=== PATIENT | male | born 1980 | race Hispanic/Latino ===

== ENCOUNTER 2016-11-02 08:41 | Emergency (ER) | payer SELFPAY ==
[2016-11-02 08:56] VITALS: BP 132/81
--- NOTE | 2016-11-02 09:18 | XRay Report ---
CHEST 2 VIEWS INDICATION: Cough, shortness of breath. COMPARISON: None similar. FINDINGS: PA and lateral chest radiographs demonstrate normal cardiomediastinal silhouette. Well-expanded lungs without pleural effusions or CHF. However, subtle 3-4 cm airspace opacity suspected in the right mid lung zone on the frontal view. Intact bones. CONCLUSION: Subtle right midlung pneumonia suspected, as described. Please also correlate clinically and further with chest CT, if warranted. Thank you for the opportunity to participate in this patient's care.
[2016-11-02 10:42] LABS: Basophils % (Auto) 0.8 % (0.0-1.8); Eosinophils % (Auto) 3.1 % (0.0-4.3); Hematocrit 45.9 % (35.5-45.6); Hemoglobin 15.9 gm/dl (11.8-15.2); Mean Corpuscular HGB Conc 35 % (32-34); Mean Corpuscular Hemoglobin 31 pg (28-32); Mean Corpuscular Volume 91 fl (84-94); Platelet Count 116 K/mm3 (140-440); Red Blood Count 5.07 M/mm3 (3.65-5.03); Red Cell Distribution Width 12.5 % (13.2-15.2); White Blood Count 7.3 K/mm3 (4.5-11.0)
[2016-11-02 10:43] LABS: Anion Gap 18 mmol/L; Blood Urea Nitrogen 14 mg/dL (9-20); Calcium 9.3 mg/dL (8.4-10.2); Carbon Dioxide 22 mmol/L (22-30); Chloride 102.8 mmol/L (98-107); Glucose 83 mg/dL (75-100); Potassium 3.8 mmol/L (3.6-5.0); Sodium 139 mmol/L (137-145)
[2016-11-02] MEDS ORDERED: DUONEB 0.5 MG-3 MG/3 ML SOLN IH ONE (11:01)
--- NOTE | 2016-11-02 11:41 | Emergency Department Report ---
<TOBY GHOSH - Last Filed: 11/02/16 15:52> - General Chief Complaint: Upper Respiratory Infection Stated Complaint: TIM/COUGHING /EMESIS Time Seen by Provider: 11/02/16 10:06 Source: patient Mode of arrival: Ambulatory Limitations: No Limitations - History of Present Illness Initial Comments: This is a 36-year-old male well-nourished with nontoxic or ill in appearance but presents with productive cough and wheezing x1 day. Patient denies any recent travels. Denies shortness of breath, chest pain, nausea vomiting, jaw pain, abdominal pain, headache, blurry vision, stiff neck, numbness or tingling. Patient status currently on clindamycin due to dental workup. Patient also c/o chest tightness after cough. Describes it as sharp but subsides when cough stops. Denies CP or radiating CP tightness. Patient denies any fever or chills. Patient stated allergies to latex, penicillin, Phenergan. Patient denies past medical history except asthma and kidney stones. MD Complaint: cough (productive) -: Gradual, days(s) (1) Severity: mild Severity scale (0 -10): 7 Quality: sharp Consistency: intermittent Improves With: nothing Associated Symptoms: cough. denies: fever, chills, myalgias, diaphoresis, headache, rhinorrhea, nasal congestion, sore throat, stiff neck, chest pain, shortness of breath, abdominal pain, nausea, vomiting, diarrhea, dysuria, rash, confusion, right sweats, weight loss, epistaxis, hoarseness, ear pain Treatments Prior to Arrival: none - Related Data Previous Rx's Medication Instructions Recorded Last Taken Type Albuterol Sulfate [Ventolin HFA] 2 puff IH Q4H PRN #1 hfa.aer.ad 11/02/16 Unknown Rx Levofloxacin [Levaquin TAB] 750 mg PO QDAY #5 tablet 11/02/16 Unknown Rx predniSONE [Deltasone] 20 mg PO BID #10 tab 11/02/16 Unknown Rx Allergies Allergy/AdvReac Type Severity Reaction Status Date / Time latex AdvReac Rash Verified 11/02/16 08:58 Penicillins AdvReac ABD PAIN Verified 11/02/16 08:58 promethazine HCl AdvReac "SKIN Verified 11/02/16 08:58 [From Phenergan] CRAWL" ED Review of Systems ROS: Stated complaint: TIM/COUGHING /EMESIS Other details as noted in HPI Constitutional: denies: chills, fever Eyes: denies: eye pain, eye discharge, vision change ENT: denies: ear pain, throat pain Respiratory: denies: cough, shortness of breath, wheezing Cardiovascular: denies: chest pain, palpitations Endocrine: no symptoms reported Gastrointestinal: denies: abdominal pain, nausea, diarrhea Genitourinary: denies: urgency, dysuria Musculoskeletal: denies: back pain, joint swelling, arthralgia Skin: denies: rash, lesions Neurological: denies: headache, weakness, paresthesias Psychiatric: denies: anxiety, depression Hematological/Lymphatic: denies: easy bleeding, easy bruising ED Past Medical Hx - Past Medical History Hx Kidney Stones: Yes Hx Asthma: Yes - Surgical History Additional Surgical History: LITHOTRIPSY. LEFT KIDNEY STENT LEFT NEPHROSTOMY TUBE - Social History Smoking Status: Current Every Day Smoker Substance Use Type: Marijuana - Medications Home Medications: Home Medications Medication Instructions Recorded Confirmed Last Taken Type Albuterol Sulfate [Ventolin HFA] 2 puff IH Q4H PRN #1 hfa.aer.ad 11/02/16 Unknown Rx Levofloxacin [Levaquin TAB] 750 mg PO QDAY #5 tablet 11/02/16 Unknown Rx predniSONE [Deltasone] 20 mg PO BID #10 tab 11/02/16 Unknown Rx ED Physical Exam - General Limitations: No Limitations General appearance: alert, in no apparent distress - Head Head exam: Present: atraumatic, normocephalic, normal inspection - Eye Eye exam: Present: normal appearance, PERRL, EOMI. Absent: scleral icterus, conjunctival injection, nystagmus, periorbital swelling, periorbital tenderness Pupils: Present: normal accommodation - ENT ENT exam: Present: normal exam, normal orophraynx, mucous membranes moist, TM's normal bilaterally, normal external ear exam - Neck Neck exam: Present: normal inspection, full ROM. Absent: tenderness, meningismus, lymphadenopathy, thyromegaly - Respiratory Respiratory exam: Present: normal lung sounds bilaterally, wheezes (bilateral upper/middle lobes). Absent: respiratory distress, rales, rhonchi, stridor, chest wall tenderness, accessory muscle use, decreased breath sounds, prolonged expiratory - Cardiovascular Cardiovascular Exam: Present: regular rate, normal rhythm, normal heart sounds. Absent: bradycardia, tachycardia, irregular rhythm, systolic murmur, diastolic murmur, rubs, gallop - GI/Abdominal GI/Abdominal exam: Present: soft, normal bowel sounds. Absent: distended, tenderness, guarding, rebound, rigid, diminished bowel sounds - Rectal Rectal exam: Present: deferred - Extremities Exam Extremities exam: Present: normal inspection, full ROM, normal capillary refill. Absent: tenderness, pedal edema, joint swelling, calf tenderness - Back Exam Back exam: Present: normal inspection, full ROM. Absent: tenderness, CVA tenderness (R), CVA tenderness (L), muscle spasm, paraspinal tenderness, vertebral tenderness, rash noted - Neurological Exam Neurological exam: Present: alert, oriented X3, CN II-XII intact, normal gait - Psychiatric Psychiatric exam: Present: normal affect, normal mood - Skin Skin exam: Present: warm, dry, intact, normal color. Absent: rash ED Course Vital Signs 11/02/16 11/02/16 08:50 11:48 Temperature 98.2 F Pulse Rate 93 H 86 Respiratory 18 Rate Blood Pressure 132/81 O2 Sat by Pulse 96 96 Oximetry - Reevaluation(s) Reevaluation #1: 11/02/16 11:42 Patient is resting comfortably with no signs of distress. Reevaluation #2: 11/02/16 11:42 Pre DuoNeb treatment Peak-flow 150 Post DuoNeb treatment peak flow: 250 As per registered therapist patient had difficulty due to coughing. Wheezing has significantly decreased and patient that he feels much better after DuoNeb treatment. - Consultations Consultation #1: 11/02/16 11:42 Dr. Springer has been consulted about patient and agrees to plan of care and d/c instructions. ED Medical Decision Making - Lab Data Result diagrams: 11/02/16 10:15 11/02/16 10:15 - Medical Decision Making Ed course: This is a 36-year-old male that presents with right midlung pneumonia 1- x-ray of chest has been obtained in the ED. Dictated by Dr. Drew. Impression; Subtle right midlung pneumonia suspected. 2- CBC and BMP has been obtained with normal findings. Dr. Springer was consulted by the patient agrees to plan of care and ED as well as discharge instructions. 3- patient was instructed to discontinue clindamycin and take levofloxacin for 5 days. 4- patient was also instructed to follow up with her primary care doctor in 24 hours or if symptoms worsen such as difficulty breathing, shortness of breath, chest pain, fever, chills, nausea vomiting, headache, stiff neck, report back to emergency room as soon as possible. 5- at time time of discharge, the patient does not seem toxic or ill in appearance. No acute signs of distress noted. Patient agrees to discharge treatment plan of care. No further questions noted by the patient. 6- patient also received albuterol and prednisone at the time of discharge. 7- patient received Solu-Medrol and DuoNeb in the ED. Peak flow pre-and post DuoNeb has been obtained. Wheezing has been significantly decreased and patient state he feels much better with breathing. 8- CURB-65 is 0 points: Low risk group: 0.6% 30-day mortality. Consider outpatient treatment. Critical care attestation.: If time is entered above; I have spent that time in minutes in the direct care of this critically ill patient, excluding procedure time. ED Disposition Disposition: DC-01 TO HOME OR SELFCARE Is pt being admited?: No Does the pt Need Aspirin: No Condition: Stable Instructions: Prednisone (By mouth), Levofloxacin (By mouth), Community- acquired Pneumonia (ED), Bacterial Pneumonia (ED) Additional Instructions: Stop taking clindamycin and start taking levofloxacin as prescribed. Follow up with your primary care doctor in 24 hours or if symptoms worsen such as difficulty breathing, shortness of breath, chest pain, fever, chills, nausea vomiting, headache, stiff neck, report back to emergency room as soon as possible. Take full course of antibiotics and prednisone as prescribed. Take albuterol as prescribed as needed for difficulty breathing or wheezing. Prescriptions: Albuterol Sulfate [Ventolin HFA] 2 puff IH Q4H PRN #1 hfa.aer.ad PRN Reason: Shortness Of Breath Levofloxacin [Levaquin TAB] 750 mg PO QDAY #5 tablet predniSONE [Deltasone] 20 mg PO BID #10 tab Referrals: [facility] [Outside] - 3-5 Days [facility] [Outside] - 3-5 Days BABATUNDE HAIR JR, MD [Staff Physician] - 24 Hours PRIMARY CARE, [Primary Care Provider] - 24 Hours Forms: Work/School Release Form(ED) <VILMA SPRINGER - Last Filed: 11/04/16 18:44> ED Medical Decision Making - Lab Data Result diagrams: 11/02/16 10:15 11/02/16 10:15
== END 2016-11-02 12:09 | disposition home or self-care (01) ==
LOC: ED 08:41
DX: R05 Cough (principal); R06.2 Wheezing; J45.909 Unspecified asthma, uncomplicated; F17.200 Nicotine dependence, unspecified, uncomplicated; F12.90 Cannabis use, unspecified, uncomplicated; Z88.0 Allergy status to penicillin; Z91.040 Latex allergy status; Z88.8 Allergy status to other drugs, medicaments and biological substances
CPT/HCPCS: 36415; 71020; 80048; 85025; 94640; 96372; 99284; J2920

== ENCOUNTER 2019-11-20 12:41 | Emergency (ER) | payer SELFPAY ==
[2019-11-20 12:47] VITALS: BP 124/73
--- NOTE | 2019-11-20 13:00 | Event Note ---
ED Screening Note ED Screening Note: FLANK PAIN This initial assessment/diagnostic orders/clinical plan/treatment(s) is/are subject to change based on patients health status, clinical progression and re- assessment by fellow clinical providers in the ED. Further treatment and workup at subsequent clinical providers discretion. Patient/guardian urged not to elope from the ED as their condition may be serious if not clinically assessed and managed. Initial orders include: KATIE TONY
[2019-11-20 13:14] LABS: Mean Corpuscular HGB Conc 36 % (32-34); Mean Corpuscular Volume 92 fl (84-94); Platelet Count 151 K/mm3 (140-440); Red Cell Distribution Width 12.5 % (13.2-15.2)
[2019-11-20 13:17] LABS: Hemoglobin 15.8 gm/dl (11.8-15.2)
[2019-11-20 13:55] LABS: BUN/Creatinine Ratio 14; Blood Urea Nitrogen 14 mg/dL (9-20); Calcium 9.5 mg/dL (8.4-10.2); Hemolysis Index 11
[2019-11-20 14:32] LABS: Bilirubin,Urine NEG (Negative); Blood,Urine SM (Negative); Color,Urine Yellow (Yellow); Mucus,Urine FEW /HPF; Protein,Urine <15 mg/dL mg/dL (Negative); Urobilinogen,Urine < 2.0 mg/dL (<2.0)
[2019-11-20] MEDS ORDERED: SODIUM CHLORIDE 0.9% 1000 ML 1,000 ML IV ONE (14:34)
[2019-11-20] MEDS ORDERED: KETOROLAC 30 MG/1 ML INJ IV ONE (15:11)
--- NOTE | 2019-11-20 15:50 | Cat Scan Report ---
CT ABDOMEN AND PELVIS WITHOUT CONTRAST HISTORY: abd pain RO KIDNEY STONE COMPARISON: None. TECHNIQUE: Axial CT images were obtained through the abdomen and pelvis without IV contrast. Sagittal and coronal reformatted images. All CT scans at this location are performed using CT dose reduction for ALARA by means of automated exposure control. FINDINGS: CT ABDOMEN: Lung Bases: Clear. Liver: No significant abnormality. Biliary: No significant abnormality. Spleen: No significant abnormality. Unenlarged. Pancreas: No significant abnormality. Adrenals: No significant abnormality. Kidneys: The kidneys are normal size, contour and position. There are 3 or 4 calyceal stones in both kidneys measuring up to 4 mm. A 5.0 x 5.0 x 6.8 mm left ureteral stone is identified at the level of L4. There is moderate upstream hydronephrosis. Lymphatics: No lymphadenopathy. Vasculature: No significant abnormality. Bowel/Peritoneum: No significant abnormality. No free air. No free fluid. Normal appendix. CT PELVIS: : No significant abnormality. Osseous Structures: No significant abnormality. Additional Findings: None IMPRESSION: Small bilateral renal stones. Obstructing mid left ureteral stone as described. Signer Name: Nish Blake Jr, MD Signed: 11/20/2019 3:46 PM Workstation Name: [id number]
--- NOTE | 2019-11-20 15:58 | Emergency Department Report ---
ED Abdominal Pain HPI - General Chief Complaint: Abdominal Pain Stated Complaint: LEFT FLANK PAIN Time Seen by Provider: 11/20/19 12:59 Source: patient Mode of arrival: Ambulatory Limitations: No Limitations - History of Present Illness Initial Comments: 39-year-old male with a past medical history of kidney stones presents to the ER today complaining of left flank pain. Patient reports acute onset of left flank pain was he was at work today. He states that it did radiate into his left lower abdomen. He described it as a sharp constant pain. He reports nausea but no vomiting. He does report urinary hesitancy, urgency and decreased urine output. But he denies any hematuria dysuria. He denies any fever or chills. He states that his last flareup of a kidney stone was back in March. He does not currently have a urologist. MD Complaint: flank pain -: Sudden (1 hour prior to arrival) Location: L flank Radiation: LLQ Severity: severe Severity scale (0 -10): 9 Quality: stabbing Consistency: constant Improves With: nothing Worsens With: nothing Associated Symptoms: nausea - Related Data Previous Rx's Medication Instructions Recorded Last Taken Type Albuterol Sulfate [Ventolin HFA] 2 puff IH Q4H PRN #1 hfa.aer.ad 11/02/16 Unknown Rx levoFLOXacin [Levaquin TAB] 750 mg PO QDAY #5 tablet 11/02/16 Unknown Rx predniSONE [Deltasone] 20 mg PO BID #10 tab 11/02/16 Unknown Rx HYDROcodone/APAP 10-325 [Ayer 1 each PO Q6HR PRN #12 tablet 11/20/19 Unknown Rx 10/325] Ketorolac [Toradol] 10 mg PO Q6H PRN #20 tablet 11/20/19 Unknown Rx Metoclopramide [Reglan] 10 mg PO TID PRN #15 tab 11/20/19 Unknown Rx Tamsulosin [Flomax] 0.4 mg PO QDAY #5 cap 11/20/19 Unknown Rx Allergies Allergy/AdvReac Type Severity Reaction Status Date / Time latex AdvReac Rash Verified 11/02/16 08:58 Penicillins AdvReac ABD PAIN Verified 11/02/16 08:58 promethazine HCl AdvReac "SKIN Verified 11/02/16 08:58 [From Phenergan] CRAWL" ED Review of Systems ROS: Stated complaint: LEFT FLANK PAIN Other details as noted in HPI Constitutional: denies: chills, fever Respiratory: denies: cough, shortness of breath, wheezing Cardiovascular: denies: chest pain, palpitations Gastrointestinal: nausea, other (Left flank pain). denies: abdominal pain, vomiting, diarrhea, constipation, melena Genitourinary: urgency, frequency, other (Urinary urgency). denies: dysuria, hematuria, discharge, testicular pain, testicular mass Skin: denies: rash, lesions Neurological: denies: headache, weakness, paresthesias Psychiatric: denies: anxiety, depression Hematological/Lymphatic: denies: easy bleeding, easy bruising ED Past Medical Hx - Past Medical History Previous Medical History?: Yes Hx Kidney Stones: Yes Hx Asthma: Yes - Surgical History Past Surgical History?: Yes Additional Surgical History: LITHOTRIPSY. LEFT KIDNEY STENT LEFT NEPHROSTOMY TUBE - Social History Smoking Status: Current Every Day Smoker Substance Use Type: None - Medications Home Medications: Home Medications Medication Instructions Recorded Confirmed Last Taken Type Albuterol Sulfate [Ventolin HFA] 2 puff IH Q4H PRN #1 hfa.aer.ad 11/02/16 Un known Rx levoFLOXacin [Levaquin TAB] 750 mg PO QDAY #5 tablet 11/02/16 Unknown Rx predniSONE [Deltasone] 20 mg PO BID #10 tab 11/02/16 Unknown Rx HYDROcodone/APAP 10-325 [Ayer 1 each PO Q6HR PRN #12 tablet 11/20/19 Unknown Rx 10/325] Ketorolac [Toradol] 10 mg PO Q6H PRN #20 tablet 11/20/19 Unknown Rx Metoclopramide [Reglan] 10 mg PO TID PRN #15 tab 11/20/19 Unknown Rx Tamsulosin [Flomax] 0.4 mg PO QDAY #5 cap 11/20/19 Unknown Rx ED Physical Exam - General Limitations: No Limitations General appearance: alert, in no apparent distress - Head Head exam: Present: atraumatic, normocephalic, normal inspection - Eye Eye exam: Present: normal appearance, PERRL, EOMI Pupils: Present: normal accommodation - Respiratory Respiratory exam: Present: normal lung sounds bilaterally. Absent: respiratory distress - Cardiovascular Cardiovascular Exam: Present: regular rate, normal rhythm, normal heart sounds - GI/Abdominal GI/Abdominal exam: Present: soft, other (Left CVA tenderness). Absent: distended, tenderness - Back Exam Back exam: Present: normal inspection, CVA tenderness (L) - Neurological Exam Neurological exam: Present: alert, oriented X3, CN II-XII intact - Psychiatric Psychiatric exam: Present: normal affect, normal mood - Skin Skin exam: Present: intact ED Course Vital Signs 11/20/19 12:43 Temperature 97.7 F Pulse Rate 74 Respiratory 18 Rate Blood Pressure 124/73 O2 Sat by Pulse 95 Oximetry - Reevaluation(s) Reevaluation #1: 11/20/19 17:32 Patient reports that his pain is much better after IV morphine, Toradol and fluids. Patient is currently resting comfortably and does not appear to be in any acute distress. CT scan shows that he has a left mid ureteral obstructing stone measuring 5 mm x 5mm x 6.8mm. Patient renal functions are normal. White count is normal. Urine does not suggest a UTI. His vital signs are normal. Discussed results with patient. Given that his pain is under control he will be discharged home with pain medications, Flomax and antiemetics. Patient is requesting Reglan for nausea instead of the typical Zofran and Phenergan. Patient states that he used to see Dr. Sylvester (his urologist), he states that he will follow-up with Dr. Sylvester if feels he cannot pass the stone. Patient stable at time of discharge. ED Medical Decision Making - Lab Data Result diagrams: 11/20/19 13:02 11/20/19 13:02 - Radiology Data Radiology results: report reviewed [facility] [address] [place] [address] Cat Scan Report Signed Patient: SUKI BROWN MR#: [id number] : 1980 Acct:[id number] Age/Sex: 39 / M ADM Date: 11/20/19 Loc: ED Attending Dr: Ordering Physician: ODILIA CASTELLANO Date of Service: 11/20/19 Procedure(s): CT abdomen pelvis wo con Accession Number(s): [id number] cc: ODILIA CASTELLANO CT ABDOMEN AND PELVIS WITHOUT CONTRAST HISTORY: abd pain RO KIDNEY STONE COMPARISON: None. TECHNIQUE: Axial CT images were obtained through the abdomen and pelvis without IV contrast. Sagittal and coronal reformatted images. All CT scans at this location are performed using CT dose reduction for ALARA by means of automated exposure control. FINDINGS: CT ABDOMEN: Lung Bases: Clear. Liver: No significant abnormality. Biliary: No significant abnormality. Spleen: No significant abnormality. Unenlarged. Pancreas: No significant abnormality. Adrenals: No significant abnormality. Kidneys: The kidneys are normal size, contour and position. There are 3 or 4 calyceal stones in both kidneys measuring up to 4 mm. A 5.0 x 5.0 x 6.8 mm left ureteral stone is identified at the level of L4. There is moderate upstream hydronephrosis. Lymphatics: No lymphadenopathy. Vasculature: No significant abnormality. Bowel/Peritoneum: No significant abnormality. No free air. No free fluid. Normal appendix. CT PELVIS: : No significant abnormality. Osseous Structures: No significant abnormality. Additional Findings: None IMPRESSION: Small bilateral renal stones. Obstructing mid left ureteral stone as described. Signer Name: Nish Blake Jr, MD Signed: 11/20/2019 3:46 PM Workstation Name: [id number] Transcribed By: TTR Dictated By: NISH BLAKE JR, MD Electronically Authenticated By: NISH BLAKE JR, MD Signed Date/Time: 11/20/19 1546 DD/ 1544 TD/TT: Critical care attestation.: If time is entered above; I have spent that time in minutes in the direct care of this critically ill patient, excluding procedure time. ED Disposition Clinical Impression: Kidney stone on left side Disposition: DC-01 TO HOME OR SELFCARE Is pt being admited?: No Does the pt Need Aspirin: No Condition: Stable Instructions: Kidney Stones (ED) Additional Instructions: I recommend you drink lots of fluids. Take medications as prescribed. Follow up with your urologist as discussed. Return to ED if worse. Prescriptions: Tamsulosin [Flomax] 0.4 mg PO QDAY #5 cap HYDROcodone/APAP 10-325 [Ayer 10/325] 1 each PO Q6HR PRN #12 tablet PRN Reason: Pain Metoclopramide [Reglan] 10 mg PO TID PRN #15 tab PRN Reason: Nausea/vomiting Ketorolac [Toradol] 10 mg PO Q6H PRN #20 tablet PRN Reason: Pain Referrals: PRIMARY CARE, [Primary Care Provider] - 3-5 Days Forms: Work/School Release Form(ED) Time of Disposition: 17:37
[2019-11-20] MEDS ORDERED: MORPHINE 4 MG/1 ML INJ IV ONE (16:06)
== END 2019-11-20 17:57 | disposition home or self-care (01) ==
LOC: ED 12:41
DX: N20.0 Calculus of kidney (principal); J45.909 Unspecified asthma, uncomplicated; F17.200 Nicotine dependence, unspecified, uncomplicated; Z79.899 Other long term (current) drug therapy; Z88.8 Allergy status to other drugs, medicaments and biological substances; Z88.0 Allergy status to penicillin; Z91.040 Latex allergy status; Z98.890 Other specified postprocedural states
CPT/HCPCS: 36415; 74176; 80048; 81001; 85027; 96374; 96375; 99284; J1885; J2270; J7030